=== PATIENT | male | born 1955 | race Caucasian/White ===

== ENCOUNTER 2017-06-05 19:50 | Emergency (ER) | payer OTHER ==
[2017-06-05] MEDS ORDERED: Diphtheria,Pertussis(Acell),Tetanus Vaccine 0.5 ML Syringe IM ONE (19:57)
--- NOTE | 2017-06-05 19:59 | EDM.PDOC ---
ED HPI GENERAL MEDICAL PROBLEM - General Stated Complaint: POSSIBLE BROKEN RT LEG Time Seen by Provider: 06/05/17 19:58 Source of Information: Reports: Patient - History of Present Illness INITIAL COMMENTS - FREE TEXT/NARRATIVE: HISTORY AND PHYSICAL: History of present illness: []Patient fell while at work for piece of equipment over one week ago, he has been working since he has bruising to his right lower extremity from contusion he states he fell from a height of about 3 feet landing on the right tibia has a small area that was open approximately half inch diameter is healed no redness warmth or exudative drainage this is healing well He does have bruising extending the entire length of the tibia with some pooling near the ankle, he has been working over the last week since he rates pain 5 out of 10 nonradiating no fever nausea vomiting chills sweats no chest pain shortness breath headache dizziness palpitation no bowel or urine symptoms He denies head injury or loss of consciousness Review of systems: As per history of present illness and below otherwise all systems reviewed and negative. Past medical history: As per history of present illness and as reviewed below otherwise noncontributory. Surgical history: As per history of present illness and as reviewed below otherwise noncontributory. Social history: No reported history of drug or alcohol abuse. Family history: As per history of present illness and as reviewed below otherwise noncontributory. Physical exam: HEENT: Atraumatic, normocephalic, pupils reactive, negative for conjunctival pallor or scleral icterus, mucous membranes moist, throat clear, neck supple, nontender, trachea midline. Lungs: Clear to auscultation, breath sounds equal bilaterally, chest nontender. Heart: S1S2, regular, negative for clicks, rubs, or JVD. Abdomen: Soft, nondistended, nontender. Negative for masses or hepatosplenomegaly. Negative for costovertebral tenderness. Pelvis: Stable nontender. Genitourinary: Deferred. Rectal: Deferred. Extremities: Atraumatic, negative for cords or calf pain. Neurovascular unremarkable. Left lower extremity full range of motion hip knee and ankle which appears to be painless he is tender over the anterior tibia for nearly the length of the tibia bruising is present along with swelling he has good sensation motor and capillary refill is under 3 seconds entire limb is neurovascularly intact Neuro: Awake, alert, oriented. Cranial nerves II through XII unremarkable. Cerebellum unremarkable. Motor and sensory unremarkable throughout. Exam nonfocal. Diagnostics: [Right tib-fib Right knee 3 views Right ankle 3 views CBC CMP d-dimer ] Therapeutics: [Tetanus status is updated Morphine 2 mg IV ] Rest ice elevation Crutches nonweightbearing Take the weekend off work Follow-up with orthopedist Friday for reevaluation and work release or restriction as needed Cataflam 50 mg by mouth 3 times a day when necessary #30 no refill Impression: Contusion [Right lower extremity pain and bruising Post fall one week prior] Definitive disposition and diagnosis as appropriate pending reevaluation and review of above. Right Lower Leg Pain Score (Numeric/FACES): 3 - Related Data Allergies Allergy/AdvReac Type Severity Reaction Status Date / Time No Known Allergies Allergy Verified 06/05/17 20:08 Home Meds: Home Meds . [Unable to Verify Home Med List] 05/04/14 [History] Social & Family History - Tobacco Use Smoking Status *Q: Unknown Ever Smoked Years of Tobacco use: 45 - Alcohol Use Days Per Week of Alcohol Use: 0 ED ROS GENERAL - Review of Systems Review Of Systems: ROS reveals no pertinent complaints other than HPI. ED EXAM, GENERAL - Physical Exam Exam: See Below Course - Vital Signs Last Recorded V/S: Last Vital Signs Temp 97.9 F 06/05/17 20:02 Pulse 88 06/05/17 20:02 Resp 20 06/05/17 20:02 BP 136/94 H 06/05/17 20:02 Pulse Ox 99 06/05/17 20:02 - Orders/Labs/Meds Orders: Active Orders 24 hr Category Date Time Status Vaccines to be Administered [RC] PER UNIT ROUTINE Care 06/05/17 19:58 Active Ankle Min 3V Rt [CR] Stat Exams 06/05/17 19:57 Taken Knee 3V Rt [CR] Stat Exams 06/05/17 19:57 Taken Tibia Fibula Rt [CR] Stat Exams 06/05/17 19:57 Taken UA W/MICROSCOPIC [URIN] Stat Lab 06/05/17 20:57 Ordered Sodium Chloride 0.9% [Normal Saline] 1,000 ml Med 06/05/17 20:00 Active IV STAT Medication Orders Sodium Chloride (Normal Saline) 1,000 mls @ 125 mls/hr IV STAT PAUL Last Admin: 06/05/17 20:28 Dose: 125 mls/hr Labs: Laboratory Tests 06/05/17 06/05/17 06/05/17 Range/Units 20:14 20:14 20:14 WBC 10.56 (4.0-11.0) K/uL RBC 4.71 (4.50-5.90) M/uL Hgb 14.0 (13.0-17.0) g/dL Hct 41.0 (38.0-50.0) % MCV 87.0 (80.0-98.0) fL MCH 29.7 (27.0-32.0) pg MCHC 34.1 (31.0-37.0) g/dL RDW Std Deviation 44.8 (28.0-62.0) fl RDW Coeff of Samira 14 (11.0-15.0) % Plt Count 206 (150-400) K/uL MPV 11.00 (7.40-12.00) fL Neut % (Auto) 55.7 (48.0-80.0) % Lymph % (Auto) 31.2 (16.0-40.0) % [place] % (Auto) 9.5 (0.0-15.0) % Eos % (Auto) 3.2 (0.0-7.0) % Baso % (Auto) 0.4 (0.0-1.5) % Neut # (Auto) 5.9 H (1.4-5.7) K/uL Lymph # (Auto) 3.3 H (0.6-2.4) K/uL [place] # (Auto) 1.0 H (0.0-0.8) K/uL Eos # (Auto) 0.3 (0.0-0.7) K/uL Baso # (Auto) 0.0 (0.0-0.1) K/uL Nucleated RBC % 0.0 /100WBC Nucleated RBCs # 0 K/uL D-Dimer, Quantitative 0.51 (0.0-0.52) mg/LFEU Sodium 140 (136-146) mmol/L Potassium 4.2 (3.5-5.1) mmol/L Chloride 109 (98-110) mmol/L Carbon Dioxide 22 (21-31) mmol/L BUN 21 (6.0-23.0) mg/dL Creatinine 1.2 (0.6-1.5) mg/dL Est Cr Clr Drug Dosing 65.46 mL/min Estimated GFR (MDRD) > 60.0 ml/min Glucose 90 (60-110) mg/dL Calcium 9.7 (8.8-10.8) mg/dL Total Bilirubin 0.9 (0.1-1.5) mg/dL AST 32 (5-40) IU/L ALT 31 (8-54) IU/L Alkaline Phosphatase 61 (40-150) Total Protein 7.3 (6.0-8.0) g/dL Albumin 4.1 (3.4-4.8) g/dL Globulin 3.2 (2.0-3.5) g/dL Albumin/Globulin Ratio 1.3 (1.3-2.8) Meds: Medications Generic Name Dose Route Start Last Admin Trade Name Freq PRN Reason Stop Dose Admin Sodium Chloride 1,000 mls @ 125 mls/hr 06/05/17 20:00 06/05/17 20:28 Normal Saline IV 125 mls/hr STAT PAUL Administration Discontinued Medications Generic Name Dose Route Start Last Admin Trade Name Freq PRN Reason Stop Dose Admin Diphtheria/Tetanus/Acell Pertussis 0.5 ml 06/05/17 19:57 06/05/17 21:08 Adacel IM 06/05/17 19:58 0.5 ml .ONCE ONE Administration Morphine Sulfate 2 mg 06/05/17 20:00 06/05/17 20:26 Morphine IVPUSH 06/05/17 20:01 2 mg ONETIME ONE Administration Departure - Departure Time of Disposition: 21:34 Disposition: Home, Self-Care 01 Condition: Good Clinical Impression: Contusion - Discharge Information Referrals: PCP,None [Primary Care Provider] - Additional Instructions: Medication as prescribed Return if symptoms persist or worsen or new concerning symptoms develop Crutches partial weightbearing over the weekend Work note provided through the weekend follow-up with orthopedist on Friday Do not take ibuprofen or Tylenol with above medication Call phone number provided for appointment [facility] [address], [address] [place] [address] my orthopedic The following information is given to patients seen in the emergency department who are being discharged to home. This information is to outline your options for follow-up care. We provide all patients seen in our emergency department with a follow-up referral. The need for follow-up, as well as the timing and circumstances, are variable depending upon the specifics of your emergency department visit. If you don't have a primary care physician on staff, we will provide you with a referral. We always advise you to contact your personal physician following an emergency department visit to inform them of the circumstance of the visit and for follow-up with them and/or the need for any referrals to a consulting specialist. The emergency department will also refer you to a specialist when appropriate. This referral assures that you have the opportunity for follow-up care with a specialist. All of these measure are taken in an effort to provide you with optimal care, which includes your follow-up. Under all circumstances we always encourage you to contact your private physician who remains a resource for coordinating your care. When calling for follow-up care, please make the office aware that this follow-up is from your recent emergency room visit. If for any reason you are refused follow-up, please contact the [facility] emergency department at and asked to speak to the emergency department charge nurse. - My Orders Last 24 Hours: My Active Orders 06/05/17 19:57 Ankle Min 3V Rt [CR] Stat Knee 3V Rt [CR] Stat Tibia Fibula Rt [CR] Stat 06/05/17 19:58 Vaccines to be Administered [RC] PER UNIT ROUTINE 06/05/17 20:00 Sodium Chloride 0.9% [Normal Saline] 1,000 ml IV STAT 06/05/17 20:57 UA W/MICROSCOPIC [URIN] Stat - Assessment/Plan Last 24 Hours: My Active Orders 06/05/17 19:57 Ankle Min 3V Rt [CR] Stat Knee 3V Rt [CR] Stat Tibia Fibula Rt [CR] Stat 06/05/17 19:58 Vaccines to be Administered [RC] PER UNIT ROUTINE 06/05/17 20:00 Sodium Chloride 0.9% [Normal Saline] 1,000 ml IV STAT 06/05/17 20:57 UA W/MICROSCOPIC [URIN] Stat
[2017-06-05] MEDS ORDERED: Morphine 2 MG/ML Syringe IVPUSH ONE (20:00)
[2017-06-05] MEDS ORDERED: Sodium Chloride 0.9% 1,000 ML IV SCH (20:00)
[2017-06-05 20:45] LABS: CHLORIDE,CL 109 mmol/L (98-110); SODIUM,NA 140 mmol/L (136-146)
--- NOTE | 2017-06-06 16:00 | CR ---
EXAM DATE: 06/05/17 PATIENT'S AGE: 61 Patient: YU CARTER Facility: [place], [place] Site . Site : 1955 Study: XRay Extremity Right tib/fib [id number]/4/2018 8:57:09 PM Ordering Physician: Amanda Jimenes Final Report: INDICATION: Fell 7 days ago, swelling and bruising TECHNIQUE: Right tibia and fibula 2 views. COMPARISON: None. FINDINGS: Bones: Alignment is normal. No fractures or bone lesions. Joint spaces: Unremarkable. Soft tissues: Unremarkable. IMPRESSION: Unremarkable right tibia and fibula. Dictated by: Moiz Jewell MD @ 06/05/2017 21:26:59 (Electronic Signature) Report Signed by Proxy. [facility]
--- NOTE | 2017-06-06 16:01 | CR ---
EXAM DATE: 06/05/17 PATIENT'S AGE: 61 Patient: YU CARTER Facility: [place], [place] Site . Site : 1955 Study: XRay Knee Right [id number]/4/2018 8:57:27 PM Ordering Physician: Amanda Jimenes Final Report: INDICATION: Fall with swelling and bruising TECHNIQUE: Right knee 3 views. COMPARISON: None. FINDINGS: Bones: Alignment is normal. No fractures or bone lesions. Joint spaces: Unremarkable. No sign of joint effusion. Soft tissues: Unremarkable. IMPRESSION: Unremarkable right knee. Dictated by: Moiz Jewell MD @ 06/05/2017 21:29:12 (Electronic Signature) Report Signed by Proxy. [facility]ENTER[facility]
--- NOTE | 2017-06-06 16:10 | CR ---
EXAM DATE: 06/05/17 PATIENT'S AGE: 61 Patient: YU CARTER Facility: [place], [place] Site . Site : 1955 Study: XRay Extremity Right ankle [id number]/4/2018 8:57:48 PM Ordering Physician: Amanda Jimenes Final Report: INDICATION: Fall with swelling and bruising TECHNIQUE: Right ankle 3 views COMPARISON: None FINDINGS: Bones: Alignment is normal. No fractures or bone lesions. Joint spaces: Unremarkable. Soft tissues: There is mild lateral soft tissue swelling. Dictated by: Moiz Jewell MD @ 06/05/2017 21:28:12 (Electronic Signature) Report Signed by Proxy. [facility]
== END 2017-06-05 21:51 | disposition home or self-care (01) ==
LOC: MW.ED 19:50
DX: S80.11XA Contusion of right lower leg, initial encounter (principal); W17.89XA Other fall from one level to another, initial encounter; Y99.0 Civilian activity done for income or pay; Z23 Encounter for immunization
CPT/HCPCS: 73562; 73590; 73610; 80053; 85025; 85379; 90471; 90715; 96361; 96374; 99283; J2270; J7040; 99284

== ENCOUNTER 2020-04-24 12:40 | Emergency (ER) | payer OTHER ==
--- NOTE | 2020-04-24 12:56 | EDM.PDOC ---
ED HPI GENERAL MEDICAL PROBLEM - General Chief Complaint: Respiratory Problem Stated Complaint: SOB COVID Time Seen by Provider: 04/24/20 12:56 Source of Information: Reports: Patient History Limitations: Reports: No Limitations - History of Present Illness INITIAL COMMENTS - FREE TEXT/NARRATIVE: Patient is a 64-year-old male who presents today for shortness of breath. Patient was recently diagnosed with Covid 7 days ago. Patient was going to outpatient appointment and was found to have a low O2 sat in the 70s. Patient was brought to the ER and placed on a nonrebreather and oxygen levels up to 92%. Patient otherwise feels fine patient did mention some shortness of breath on exertion currently resting feels fine no chest pain nausea vomiting fevers chills. - Related Data Allergies Allergy/AdvReac Type Severity Reaction Status Date / Time No Known Allergies Allergy Verified 04/24/20 13:01 Home Meds: Home Meds Acetaminophen [Arthritis Pain Relief] 2 tab PO DAILY 04/24/20 [History] Acetaminophen [Tylenol] 1 - 2 tab PO Q6H PRN 04/24/20 [History] Past Medical History Cardiovascular History: Reports: Hypertension - Infectious Disease History Infectious Disease History: Reports: Chicken Pox, Measles, Mumps - Past Surgical History GI Surgical History: Reports: Hernia Repair/Other Social & Family History - Caffeine Use Caffeine Use: Reports: Coffee ED ROS GENERAL - Review of Systems Review Of Systems: See Below Constitutional: Reports: No Symptoms HEENT: Reports: No Symptoms Respiratory: Reports: No Symptoms Cardiovascular: Reports: No Symptoms Endocrine: Reports: No Symptoms GI/Abdominal: Reports: No Symptoms : Reports: No Symptoms Musculoskeletal: Reports: No Symptoms Skin: Reports: No Symptoms Neurological: Reports: No Symptoms Psychiatric: Reports: No Symptoms Hematologic/Lymphatic: Reports: No Symptoms Immunologic: Reports: No Symptoms ED EXAM, GENERAL - Physical Exam Exam: See Below Exam Limited By: No Limitations General Appearance: Alert, No Apparent Distress Eye Exam: Bilateral Eye: EOMI, PERRL Ears: Normal External Exam Respiratory/Chest: No Respiratory Distress, Lungs Clear Cardiovascular: Normal Peripheral Pulses, Regular Rate, Rhythm GI/Abdominal: Normal Bowel Sounds, Soft, Non-Tender Extremities: Normal Inspection, Normal Range of Motion Neurological: Alert, Oriented, CN II-XII Intact, Normal Cognition, Normal Gait Skin Exam: Warm Course - Vital Signs Last Recorded V/S: Last Vital Signs Temp 96.1 F L 04/24/20 12:54 Pulse 79 04/24/20 16:47 Resp 24 H 04/24/20 16:47 BP 126/84 04/24/20 16:47 Pulse Ox 88 L 04/24/20 16:47 - Orders/Labs/Meds Orders: Active Orders 24 hr Category Date Time Status Azithromycin [Zithromax] 500 mg Med 04/24/20 14:15 Active Sodium Chloride 0.9% [Normal Saline (AdvBag)] 250 ml IV ONETIME Medication Orders Azithromycin 500 mg/ Sodium (Chloride) 250 mls @ 250 mls/hr IV ONETIME PAUL Last Admin: 04/24/20 16:44 Dose: 250 mls/hr Documented by: ENID Labs: Laboratory Tests 04/24/20 04/24/20 04/24/20 Range/Units 13:17 13:17 13:40 WBC 11.63 H (4.0-11.0) K/uL RBC 4.83 (4.50-5.90) M/uL Hgb 14.1 (13.0-17.0) g/dL Hct 42.4 (38.0-50.0) % MCV 87.8 (80.0-98.0) fL MCH 29.2 (27.0-32.0) pg MCHC 33.3 (31.0-37.0) g/dL RDW Std Deviation 46.7 (28.0-62.0) fl RDW Coeff of Samira 15 (11.0-15.0) % Plt Count 222 (150-400) K/uL MPV 10.60 (7.40-12.00) fL Neut % (Auto) 87.1 H (48.0-80.0) % Lymph % (Auto) 8.2 L (16.0-40.0) % [place] % (Auto) 4.6 (0.0-15.0) % Eos % (Auto) 0.0 (0.0-7.0) % Baso % (Auto) 0.1 (0.0-1.5) % Neut # (Auto) 10.1 H (1.4-5.7) K/uL Lymph # (Auto) 1.0 (0.6-2.4) K/uL [place] # (Auto) 0.5 (0.0-0.8) K/uL Eos # (Auto) 0.0 (0.0-0.7) K/uL Baso # (Auto) 0.0 (0.0-0.1) K/uL Nucleated RBC % 0.0 /100WBC Nucleated RBCs # 0 K/uL D-Dimer, Quantitative (0.0-0.50) mg/L FEU ABG pH (7.35-7.45) ABG pCO2 (35-45) mmHG ABG pO2 (75-100) mmHG ABG HCO3 (22-26) mEq/L ABG Total CO2 ABG Base Excess (-2.0-2.0) Sodium (136-148) mmol/L Potassium (3.5-5.1) mmol/L Chloride (98-107) mmol/L Carbon Dioxide (21.0-32.0) mmol/L BUN (7.0-18.0) mg/dL Creatinine (0.8-1.3) mg/dL Est Cr Clr Drug Dosing mL/min Estimated GFR (MDRD) ml/min Glucose (74-106) mg/dL Calcium (8.5-10.1) mg/dL Total Bilirubin 0.6 (0.2-1.0) mg/dL Direct Bilirubin 0.10 (0.0-0.5) mg/dL Indirect Bilirubin 0.50 AST 49 H (15-37) IU/L ALT 35 (14-63) IU/L Alkaline Phosphatase 47 (46-116) U/L Creatine Kinase 413 H (26-308) U/L Troponin I < 0.050 (0.000-0.056) ng/mL Total Protein 6.9 (6.4-8.2) g/dL Albumin 2.7 L (3.4-5.0) g/dL Globulin 4.2 H (2.6-4.0) g/dL Albumin/Globulin Ratio 0.6 L (0.9-1.6) 04/24/20 04/24/20 04/24/20 Range/Units 13:40 13:40 16:50 WBC (4.0-11.0) K/uL RBC (4.50-5.90) M/uL Hgb (13.0-17.0) g/dL Hct (38.0-50.0) % MCV (80.0-98.0) fL MCH (27.0-32.0) pg MCHC (31.0-37.0) g/dL RDW Std Deviation (28.0-62.0) fl RDW Coeff of Samira (11.0-15.0) % Plt Count (150-400) K/uL MPV (7.40-12.00) fL Neut % (Auto) (48.0-80.0) % Lymph % (Auto) (16.0-40.0) % [place] % (Auto) (0.0-15.0) % Eos % (Auto) (0.0-7.0) % Baso % (Auto) (0.0-1.5) % Neut # (Auto) (1.4-5.7) K/uL Lymph # (Auto) (0.6-2.4) K/uL [place] # (Auto) (0.0-0.8) K/uL Eos # (Auto) (0.0-0.7) K/uL Baso # (Auto) (0.0-0.1) K/uL Nucleated RBC % /100WBC Nucleated RBCs # K/uL D-Dimer, Quantitative 0.97 H (0.0-0.50) mg/L FEU ABG pH 7.448 (7.35-7.45) ABG pCO2 31 L (35-45) mmHG ABG pO2 52 L (75-100) mmHG ABG HCO3 21 L (22-26) mEq/L ABG Total CO2 18.5 ABG Base Excess -1.7 (-2.0-2.0) Sodium 137 (136-148) mmol/L Potassium 3.7 (3.5-5.1) mmol/L Chloride 103 (98-107) mmol/L Carbon Dioxide 21.6 (21.0-32.0) mmol/L BUN 29 H (7.0-18.0) mg/dL Creatinine 1.2 (0.8-1.3) mg/dL Est Cr Clr Drug Dosing 63.01 mL/min Estimated GFR (MDRD) > 60.0 ml/min Glucose 124 H (74-106) mg/dL Calcium 8.5 (8.5-10.1) mg/dL Total Bilirubin (0.2-1.0) mg/dL Direct Bilirubin (0.0-0.5) mg/dL Indirect Bilirubin AST (15-37) IU/L ALT (14-63) IU/L Alkaline Phosphatase (46-116) U/L Creatine Kinase (26-308) U/L Troponin I (0.000-0.056) ng/mL Total Protein (6.4-8.2) g/dL Albumin (3.4-5.0) g/dL Globulin (2.6-4.0) g/dL Albumin/Globulin Ratio (0.9-1.6) Meds: Medications Generic Name Dose Route Start Last Admin Trade Name Freq PRN Reason Stop Dose Admin Azithromycin 500 mg/ Sodium 250 mls @ 250 mls/hr 04/24/20 14:15 04/24/20 16:44 Chloride IV 250 mls/hr ONETIME PAUL Administration Discontinued Medications Generic Name Dose Route Start Last Admin Trade Name Freq PRN Reason Stop Dose Admin Dexamethasone 6 mg 04/24/20 16:50 04/24/20 17:08 Decadron IVPUSH 04/24/20 16:51 6 mg ONETIME ONE Administration Enoxaparin Sodium 40 mg 04/24/20 16:52 04/24/20 17:08 Lovenox SUBCUT 04/24/20 16:53 40 mg ONETIME ONE Administration Ceftriaxone Sodium/Dextrose 1 50 mls @ 100 mls/hr 04/24/20 14:11 04/24/20 14:52 gm/ Premix IV 04/24/20 14:40 100 mls/hr ONETIME ONE Administration - Re-Assessments/Exams Free Text/Narrative Re-Assessment/Exam: 04/24/20 15:01 Patient was tried on nasal cannula box 12 again dropped down to the 70s. Patient was placed on a nonrebreather is back up to greater than 92%. Patient otherwise looks comfortable not tachypneic. Patient will be admitted to the hospital. Patient was also given antibiotics for possible underlying pneumonia as well. 04/24/20 17:57 Was excepted for transfer at [facility]. Patient oxygen level continued pain around the low 90s on nonrebreather at 15 L patient continues to look comfortable in no respiratory distress. Departure - Departure Time of Disposition: 15:02 Disposition: Admitted As Inpatient 67 Condition: Fair Clinical Impression: COVID-19, Pneumonia - Discharge Information *PRESCRIPTION DRUG MONITORING PROGRAM REVIEWED*: Not Applicable *COPY OF PRESCRIPTION DRUG MONITORING REPORT IN PATIENT PURNIMA: Not Applicable Referrals: Jovanni Suarez MD [Primary Care Provider] - Forms: ED Department Discharge Critical Care Note - Critical Care Note Total Time (mins): 45 Comments: Critical Care Procedure Note Authorized and Performed by: Dr. Mc Total critical care time: Approximately Due to a high probability of clinically significant, life threatening deterioration, the patient required my highest level of preparedness to intervene emergently and I personally spent this critical care time directly and personally managing the patient. This critical care time included obtaining a history; examining the patient; pulse oximetry; ordering and review of studies; arranging urgent treatment with development of a management plan; evaluation of patient's response to treatment; frequent reassessment; and, discussions with other providers. This critical care time was performed to assess and manage the high probability of imminent, life-threatening deterioration that could result in multi-organ failure. It was exclusive of separately billable procedures and treating other patients and teaching time. Sepsis Event Note (ED) - Focused Exam Vital Signs: Vital Signs Temp Pulse Resp BP Pulse Ox Pulse Ox 04/24/20 16:47 79 24 H 126/84 88 L 04/24/20 14:57 72 28 H 111/64 85 L 04/24/20 14:41 72 28 H 121/67 83 L 04/24/20 14:39 73 33 H 114/68 83 L 04/24/20 14:33 82 L 04/24/20 14:30 73 28 H 113/64 87 L 04/24/20 13:04 89 L 04/24/20 12:54 96.1 F L 96 20 134/76 76 L - My Orders Last 24 Hours: My Active Orders 04/24/20 14:15 Azithromycin [Zithromax] 500 mg Sodium Chloride 0.9% [Normal Saline (AdvBag)] 250 ml IV ONETIME - Assessment/Plan Last 24 Hours: My Active Orders 04/24/20 14:15 Azithromycin [Zithromax] 500 mg Sodium Chloride 0.9% [Normal Saline (AdvBag)] 250 ml IV ONETIME Plan: Patient is a 64-year-old male who presents today for shortness of breath. Patient was recently diagnosed with Covid and was at outpatient appointment and had a low O2 sat was instructed to come to the ED. Patient otherwise feels fine has no complaints. Have labs x-ray and reassess.
--- NOTE | 2020-04-24 14:06 | CR ---
INDICATION: Hypoxia TECHNIQUE: Chest 1 view. COMPARISON: 04/17/2020 FINDINGS: Cardiovascular and mediastinum: Heart size and vasculature are normal in caliber and appearance. Mediastinum is within normal limits. Lungs and pleural space: Bilateral airspace opacities consistent with pneumonia. No sign of pleural effusion. No pneumothorax. Bones and soft tissues: No significant findings. IMPRESSION: Bilateral airspace opacities consistent with pneumonia. COVID related pneumonia cannot be excluded. Dictated by Sammy Hunter MD @ Apr 24 2020 2:04PM Signed by Dr. Sammy Hunter @ Apr 24 2020 2:05PM
[2020-04-24] MEDS ORDERED: cefTRIAXone 1 GM in Premix Bag 1 BAG IV ONE (14:11)
[2020-04-24] MEDS ORDERED: Azithromycin 500 MG in Sodium Chloride 0.9% 250 ML IV SCH (14:15)
[2020-04-24 14:22] LABS: BLOOD UREA NITROGEN,BUN 29 mg/dL (7.0-18.0); CARBON DIOXIDE,CO2 21.6 mmol/L (21.0-32.0); CHLORIDE,CL 103 mmol/L (98-107); GLUCOSE RANDOM 124 mg/dL (74-106); POTASSIUM,K 3.7 mmol/L (3.5-5.1); SODIUM,NA 137 mmol/L (136-148)
[2020-04-24 15:24] LABS: BILIRUBIN INDIRECT 0.5
[2020-04-24] MEDS ORDERED: Dexamethasone 10 MG/ML SDV IVPUSH ONE (16:50)
[2020-04-24] MEDS ORDERED: Enoxaparin 40 MG/0.4 ML Syringe SUBCUT ONE (16:52)
== END 2020-04-24 18:04 | disposition critical access hospital (66) ==
LOC: MW.ED 12:40
DX: U07.1 COVID-19 (principal); J12.89 Other viral pneumonia; I10 Essential (primary) hypertension
CPT/HCPCS: 36415; 36600; 71045; 80048; 80076; 82550; 82803; 84484; 85025; 85379; 96365; 96367; 96372; 96375; 99291; J0456; J0696; J1100; J1650; J7050